=== PATIENT | female | born 1950 | race African-American/Black ===

== ENCOUNTER 2024-06-13 22:11 | Emergency (ER) | payer OTHER, MEDICAID ==
[~2024-06-13] VITALS: Ht 167.6 cm; Wt 77.1 kg
[2024-06-13 22:13] VITALS: O2SAT 96
[2024-06-13] MEDS ORDERED: MORPHINE SULFATE 4 MG/ML INJ (FOR IV/IM USE) IV STA (22:25)
[2024-06-13] MEDS: KETOROLAC 30MG/ML VIAL IV STA (22:25)
[2024-06-13] MEDS: ONDANSETRON HCL 4MG/2ML INJ IV STA (22:25)
[2024-06-13] MEDS: SODIUM CHLORIDE 0.9% 1,000 ML IV ONE (22:30)
[2024-06-14 01:36] LABS: HEMATOCRIT. 34.4 % (36.0-48.0); HEMOGLOBIN. 11.5 g/dL (12.0-16.0); MEAN CORPUSCULAR HEMOGLOBIN 30.9 pg (28.0-32.0); MEAN CORPUSCULAR HGB CONC 33.5 g/dL (31.0-37.0); MEAN CORPUSCULAR VOLUME 92.4 fL (81.0-99.0); MEAN PLATELET VOLUME 8.8 fl (7.4-10.4); PLATELET 176 x1000/uL (130-400); RED BLOOD CELL COUNT 3.73 mill/uL (4.2-5.4); RED CELL DISTRIBUTION WIDTH 13.2 % (11.6-14.6); WHITE BLOOD COUNT 6.3 x1000/uL (4.5-11.0)
[2024-06-14 01:47] LABS: CHLORIDE 103 mEq/L (98-107); POTASSIUM 3.3 mEq/L (3.5-5.1); SODIUM 140 mEq/L (136-145)
[2024-06-14 01:49] LABS: CALCIUM 9.4 mg/dL (8.7-10.4); CARBON DIOXIDE 29 mEq/L (21-32)
[2024-06-14] MEDS: MORPHINE SULFATE 4 MG/ML INJ (FOR IV/IM USE) IV NR (01:49)
[2024-06-14] MEDS: PIPERACILLIN/TAZO 3.375G/50ML 50 ML IV NR (01:49)
[2024-06-14] MEDS: ONDANSETRON HCL 4MG/2ML INJ IV NR (01:49)
[2024-06-14] MEDS: KETOROLAC 30MG/ML VIAL IV NR (01:49)
[2024-06-14 01:54] LABS: CREATININE 1.3 mg/dL (0.6-1.0); GLUCOSE 147 mg/dL (70-105); UREA NITROGEN BLOOD 21 mg/dL (9-23)
[2024-06-14 01:56] LABS: ALANINE AMINOTRANSFERASE > 1100 IU/L (10-49); ASPARTATE AMINOTRANSFERASE > 1000 IU/L (<34); BILIRUBIN DIRECT 0.9 mg/dL (<=3.0); PROTEIN TOTAL 6.6 g/dL (6.0-8.3)
[2024-06-14 02:53] LABS: DIFFERENTIAL COMMENT 1
[2024-06-14 02:56] LABS: PROTHROMBIN TIME 10.7 sec (9.6-11.0)
[2024-06-14 05:15] LABS: PLATELET ESTIMATE NORMAL
[2024-06-14] MEDS ORDERED: PIPERACILLIN/TAZO 3.375G/100ML 100 ML IV SCH (06:00)
[2024-06-14 06:33] VITALS: BP 114/50; PULSE 97; RESP 18; TEMP 36.7; O2SAT 99
== END 2024-06-14 07:18 | disposition short-term general hospital (02) ==
LOC: ER 22:11
DX: K80.40 Calculus of bile duct with cholecystitis, unspecified, without obstruction (principal)
CPT/HCPCS: 99291; 74176; 76705; 96361; 36415; 96365; 96375; 80076; 80048; 83690; 85025; 85610; 86850; 86900; 86901; J7030; J1885; J2405; J2543; J2270